=== PATIENT | female | born 1980 | race Caucasian/White ===

== ENCOUNTER → 2018-02-15 | Outpatient (CLI) | payer OTHER | LOC: CIMAGING 07:08 | PROVIDERS: ATTEND Physician Assistant | DX: K83.9 Disease of biliary tract, unspecified (principal); Z3A.00 Weeks of gestation of pregnancy not specified | CPT/HCPCS: 76705-PO ==

== ENCOUNTER → 2018-03-27 | Outpatient (CLI) | payer OTHER | LOC: FIMAGING 08:39 | PROVIDERS: ATTEND Advanced Practice Midwife | DX: O99.281 Endocrine, nutritional and metabolic diseases complicating pregnancy, first trimester (principal); O99.111 Other diseases of the blood and blood-forming organs and certain disorders involving the immune mechanism complicating pregnancy, first trimester; O26.01 Excessive weight gain in pregnancy, first trimester; O34.219 Maternal care for unspecified type scar from previous cesarean delivery; O09.521 Supervision of elderly multigravida, first trimester; E03.9 Hypothyroidism, unspecified; E72.12 Methylenetetrahydrofolate reductase deficiency; Z79.82 Long term (current) use of aspirin; Z87.59 Personal history of other complications of pregnancy, childbirth and the puerperium; Z3A.12 12 weeks gestation of pregnancy ==

== ENCOUNTER → 2018-05-30 | Outpatient (CLI) | payer OTHER | LOC: FIMAGING 07:41 | PROVIDERS: ATTEND Advanced Practice Midwife | DX: O09.522 Supervision of elderly multigravida, second trimester (principal); O99.282 Endocrine, nutritional and metabolic diseases complicating pregnancy, second trimester; E03.9 Hypothyroidism, unspecified; O09.292 Supervision of pregnancy with other poor reproductive or obstetric history, second trimester; O36.62X0 Maternal care for excessive fetal growth, second trimester, not applicable or unspecified; O26.02 Excessive weight gain in pregnancy, second trimester; O34.219 Maternal care for unspecified type scar from previous cesarean delivery; Z3A.21 21 weeks gestation of pregnancy; Z79.890 Hormone replacement therapy ==

== ENCOUNTER → 2018-06-29 | Outpatient (CLI) | payer OTHER | LOC: FIMAGING 13:13 | PROVIDERS: ATTEND Advanced Practice Midwife | DX: O09.522 Supervision of elderly multigravida, second trimester (principal); O34.212 Maternal care for vertical scar from previous cesarean delivery; Z3A.25 25 weeks gestation of pregnancy ==

== ENCOUNTER 2018-08-26 10:41 | Emergency (ER) | payer OTHER ==
--- NOTE | 2018-08-26 10:57 | EDPHY ---
HPI/HX/ROS/PE/MDM Narrative: CHIEF COMPLAINT: Cough, sore throat, cramping - 34 weeks HISTORY OF PRESENT ILLNESS: The patient is a 38 y/o woman, , 34 week complaining of a cough, sore throat, and cramping. 5 days ago, she developed a sore throat, followed by a cough the next day she developed a cough. Minimal upper respiratory infection symptoms. She reports shortness of breath with her coughing episodes. She denies tightness in her chest. She has also had some uterine cramping for the past few days. She reports the quality of the cramping is more similar to period cramps than it is to [place] contractions. She denies bleeding or spotting. She reports she can feel the baby moving normally. She works at [employer] and a student there was diagnosed with Pertussis about a month ago. She received an updated DTAP vaccine 2 weeks ago. She denies history of clotting. She denies smoking or being around smoker. Her son was sick with a similar cold. No fever, chills, chest pain, palpitations, vomiting, diarrhea, urinary complaints, headache, lightheadedness. REVIEW OF SYSTEMS: A comprehensive 10 system review of systems is otherwise negative aside from elements mentioned in the history of present illness and medical decision making. 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 Afebrile, heart rate 116, O2 sat 96% GENERAL: Well-developed, well-nourished, looks well, with a very harsh, violent , wheezy cough. HEENT: Atraumatic. Eyes: No icterus, no injection. Mouth: moist mucous membranes. No erythema or lesions. Neck: supple with no adenopathy. LUNGS: Breath sounds diminished bilaterally. Wheezy cough. No rhonchi or rales. CARDIAC: Tachycardic, regular rhythm, no rubs, murmurs or gallops. ABDOMEN: Soft, nontender, nondistended, bowel sounds normal. Gravid uterus is nontender. BACK: No CVA tenderness. EXTREMITIES: No trauma. No edema. Range of motion is normal throughout. NEURO: Alert and oriented, grossly nonfocal. SKIN: Warm and dry, no rash. PSYCHIATRIC: Normal mentation, no agitation. ED Course: The patient is 34 weeks and presents with a cough, shortness of breath , and lower abdominal cramping. She reports that she may have been exposed to pertussis recently. Her cramping feels different than [place] but the baby is still moving normally. She denies bleeding or spotting, fever, or other associated symptoms. heart tones are 136. Plan for CBC, basic metabolic panel, liver function, urinalysis, respiratory pathogen, 1 L NS fluids, and albuterol nebulizer. Patient will require monitoring Labor and delivery to ensure the no distress secondary to her intermittent cramping. Here in the emergency department she continues to feel good movement. Patient received a L of normal saline. White count and chemistries are largely unremarkable. Respiratory pathogen panel pending at this time. 12:20 PM - I reassessed this patient after her nebulizer and found her condition only slightly improved. Plan for additional nebulizer and reevaluation. I feel she will benefit from oral antibiotics over the next few days. Given her history of exposure to pertussis, Azithromycin, category B in , was prescribed. Following a 2nd neb, the patient is cough has improved but she still has coarse wheezes occasionally. She and I discussed x-ray to evaluate further. 1:15 PM - X-ray on my interpretation demonstrates mild increase in interstitial markings. Patient was discharged from the emergency department with a prescription for azithromycin, a meter dose inhaler, an additional 3 days of prednisone. I do not believe that she needs further evaluation for pulmonary embolism. Her symptoms developed in the setting of a sore throat and initial mild upper respiratory infection. Her son has been ill with similar findings. She has a coarse wheezing and diminished breath sounds throughout. I believe that a respiratory process is a much more likely diagnosis than pulmonary embolism There is no focality to her wheezing. She has no unilateral leg swelling. Patient proceeded to Labor and delivery for further evaluation of the fetus. Of note, she is tachycardic to 120 he is when leaving the emergency department, most likely the result of nebs. She had received a L of normal saline and had no ketones in her urine. MDM: Differential diagnosis for the patient's cough was considered including but not limited to viral versus bacterial bronchitis, asthma, pulmonary emboli, upper respiratory infection, lower respiratory infection, and bronchospasm. - Data Points Imaging Results: CXR: Impression: Normal. No pneumonia. Dictated By: Edward You MD Imaging: I viewed and interpreted images myself Laboratory Results: Laboratory Results 08/26/18 11:34 08/26/18 11:34 Medications Given: Discontinued Medications Albuterol (Proventil Neb) 3 ml IH EDNOW ONE Stop: 08/26/18 11:27 Last Admin: 08/26/18 11:40 Dose: 3 ml Albuterol (Proventil Neb) 3 ml IH EDNOW ONE Stop: 08/26/18 12:25 Last Admin: 08/26/18 12:25 Dose: 3 ml Azithromycin (Zithromax) 500 mg PO EDNOW ONE PRN Reason: Protocol Stop: 08/26/18 13:18 Last Admin: 08/26/18 13:31 Dose: Not Given Sodium Chloride (Ns) 1,000 mls @ 0 mls/hr IV ONCE ONE; Wide Open PRN Reason: Protocol Stop: 08/26/18 11:27 Last Admin: 08/26/18 11:38 Dose: 1,000 mls Prednisone (Prednisone) 40 mg PO EDNOW ONE Stop: 08/26/18 11:28 Last Admin: 08/26/18 11:39 Dose: 40 mg Microbiology Results: MICROBIOLOGY 08/26/18 14:12 Nasal, Sinus - Swab Respiratory Panel (PCR) - Final Parainfluenza Virus Type 3 General Time Seen by Provider: 08/26/18 10:54 Initial Vital Signs: Initial Vital Signs Temperature (C) 36.3 C 08/26/18 10:44 Heart Rate 116 H 08/26/18 10:44 Respiratory Rate 18 08/26/18 10:44 Blood Pressure 118/89 H 08/26/18 10:44 O2 Sat (%) 96 08/26/18 10:44 O2 Delivery Mode Room Air Allergies/Adverse Reactions: No Known Allergies Allergy (Unverified 08/08/16 15:29) Home Medications: Medication Instructions Recorded Vit27&Calcium/Iron/FA 1 each PO DAILY 08/08/16 [] Herbals/Supplements -Info Only 1 tab PO DAILY 09/02/16 VITAMIN D 1 cap PO DAILY 09/02/16 Ibuprofen [Motrin (*)] 600 mg PO Q6HRS PRN #0 tab 09/06/16 Iron Polysacch/Iron Heme Polyp 28 mg PO DAILY #0 tab 09/06/16 [Bifera] Levothyroxine [Synthroid 25 mcg 25 mcg PO DAILY #0 tab 09/06/16 (*)] Albuterol [Proventil Inhaler HFA 1 - 2 puffs IH Q4H #1 mdi 08/26/18 (*)] Azithromycin [Zithromax] 250 mg PO DAILY #4 tab 08/26/18 predniSONE [prednisone 10mg (RX)] 20 mg PO DAILY 3 Days tab 08/26/18 Departure - Departure Disposition: Home, Routine, Self-Care Clinical Impression: Cough, 34 weeks gestation of , Abdominal cramping, Bronchitis Condition: Good Instructions: (ED), Cold Symptoms (ED), Acute Cough (ED), Wheezing ( ED) Additional Instructions: 1. Take azithromycin as directed. Take your albuterol inhaler as directed for symptoms. Albuterol 2-4 puffs every 4-6 hours as needed for cough and shortness of breath 2. Please take the prednisone as directed. Prednisone 20 mg daily for the next 3 days. 3. Please get plenty of rest and drink plenty of fluids. 4. You may use Tylenol if needed for any fevers. Please discuss the use of Mucinex with your OBGYN. Please discuss the use of other [id number] cold and cough medications with your OBGYN. Referrals: NONE *PRIMARY CARE P,. [Primary Care Provider] - As per Instructions Prescriptions: Albuterol [Proventil Inhaler HFA (*)] 1 - 2 puffs IH Q4H #1 mdi Azithromycin [Zithromax] 250 mg PO DAILY #4 tab predniSONE [prednisone 10mg (RX)] 20 mg PO DAILY 3 Days tab Report Scribed for: Kathe Coles Report Scribed by: Marie Montaño Date of Report: 08/26/18 Time of Report: 12:38 Physician Review and Approval Statement: Portions of this note were transcribed by a medical laboratory technical officer. I personally performed a history, physical exam, medical decision making, and confirmed accuracy of information the transcribed note.
[2018-08-26] MEDS ORDERED: ALBUTEROL 3 ML DEYVIAL IH ONE ×2 (11:26→12:24)
[2018-08-26] MEDS ORDERED: NS 1,000 ML IV ONE (11:26)
[2018-08-26] MEDS ORDERED: predniSONE 20 MG TAB PO ONE (11:27)
[2018-08-26 11:50] LABS: PLATELET COUNT 177 10^3/uL (150-400)
[2018-08-26] MEDS ORDERED: ALBUTEROL 3 ML DEYVIAL ONE (12:23)
[2018-08-26 12:44] VITALS: BP 127/81
[2018-08-26] MEDS ORDERED: AZITHROMYCIN 250 MG TAB PO ONE (13:17)
== END 2018-08-26 13:40 | disposition home or self-care (01) ==
DX: O99.89 Other specified diseases and conditions complicating pregnancy, childbirth and the puerperium (principal); J40 Bronchitis, not specified as acute or chronic; R10.84 Generalized abdominal pain; Z3A.34 34 weeks gestation of pregnancy
CPT/HCPCS: J7512; J7613

== ENCOUNTER 2018-08-26 13:43 | Observation (INO) | payer OTHER ==
--- NOTE | 2018-08-26 15:40 | OBGCSDC ---
General Delivery Information - General Info : 2 Para: 1 Abortions: 0 Admission Date: 08/26/18 - Hospital Course Antepartum: 08/26/18 16:05 Evaluation for cramping [place] Data ESTRADA: 10/09/18 Gestational Age: 33 week(s) and 5 day(s) Discharge Information - Discharge Information Condition: Good Instruction/Follow Up: See Instruction Sheet (follow up with regular visit)
--- NOTE | 2018-08-26 15:40 | PDGENHP ---
History and Physical History and Physical: Pt is a 38 yo 2 34 weeks gestation, sent up to L & D from the ED after being evaluated for a respiratory infection and reporting uterine cramping. See ER report from today regarding diagnosis of bronchitis. Cody states she has had cramping on and off for the last week, mostly at night. Denies uc's. Baby has been moving well. Did receive 2 doses of prednisone in the ED. O) Afebrile. Maternal pulse 130 then decreased to 100. FHT baseline 150; mod judah; + accels; no decels. No uterine activity noted. A) 38 you @ 34 weeks, bronchitis. Reactive NST. P) Discharged home. Advised to take prescription medication as prescribed from ED and discussed importance of hydration. Also advised other comfort measures including using a humidifier, sleeping in elevated position. Will follow up for regular care in the office.
== END 2018-08-26 16:00 | disposition home or self-care (01) ==
LOC: FLD 13:43
PROVIDERS: ADMIT Advanced Practice Midwife; ATTEND Advanced Practice Midwife
DX: O99.513 Diseases of the respiratory system complicating pregnancy, third trimester (principal); J40 Bronchitis, not specified as acute or chronic; Z3A.34 34 weeks gestation of pregnancy
CPT/HCPCS: G0378 ×2

== ENCOUNTER → 2018-09-19 | Outpatient (CLI) | payer OTHER | LOC: FIMAGING 09:19 | PROVIDERS: ATTEND Advanced Practice Midwife | DX: O09.523 Supervision of elderly multigravida, third trimester (principal); Z36.88 Encounter for antenatal screening for fetal macrosomia; O34.219 Maternal care for unspecified type scar from previous cesarean delivery; O36.63X0 Maternal care for excessive fetal growth, third trimester, not applicable or unspecified; Z3A.37 37 weeks gestation of pregnancy ==

== ENCOUNTER 2018-10-06 01:59 | Inpatient (IN) | payer OTHER ==
--- NOTE | 2018-09-21 17:46 | GHP ---
PLANNED PROCEDURE: Repeat low transverse section. INDICATION: The patient is a 38-year-old 2, para 1-0-0-1 who will be at 39 plus weeks' gesta tion. She has a history of a previous low transverse section for arrest of dilation and non reassuring status. Patient's estimated date of confinement is 10/09/2018 dated by last menstru al period, consistent with a 7-week ultrasound. She has been receiving care with [facility] since the first trimester. Patient presented for a consent visit on 09/21/2018. Nolvia alfonso discussed the risks of vaginal after section as well as the algorithm predicted succ ess rate of 46%. The patient is hoping to have a vaginal after section if she proceed s into labor spontaneously prior to 40 weeks' gestation. If she does not proceed in labor prior to t hat, she will undergo a repeat low transverse section. Patient's family status is likely co mplete; however, she would not like to have a tubal ligation as her partner will have a vasectomy whe n the time comes. The patient has been properly consented. REVIEW OF SYSTEMS: 10-point review of systems is negative. Positive movement. No loss of flu id. No vaginal bleeding. She denies any headache or changes in vision. PAST MEDICAL HISTORY: History of anxiety largely surrounded by childbirth, MTHFR, history of migrain es, history of depression, hypothyroidism. MEDICATIONS: Levothyroxine 100 mcg, vitamins. Patient is also taking methylfolate and a ba by aspirin. PAST SURGICAL HISTORY: Oral surgery and section. ALLERGIES: No known drug allergies. SOCIAL HISTORY: Patient is . She lives with her and her child. She denies any tobac co, alcohol, or drug use. FAMILY MEDICAL HISTORY: Noncontributory. SPIN TABLE OPERATOR HISTORY: Menarche at age 13. Periods every 28 days lasting 4 to 5 days. She is a 2, para 1-0-0-1. In 08/2016, she had a primary low transverse section for arrest of dilation and intolerance of labor of a 7-pound 10-ounce male infant. That was at 41 weeks gestation. C urrent has been uncomplicated. She has had serial growth ultrasounds for size greater than dates. Repeat growth ultrasounds showed the baby in the 95th percentile. Patient denies any histor y of any abnormal Pap smears or sexually transmitted diseases. PHYSICAL EXAMINATION: VITAL SIGNS: Stable. GENERAL APPEARANCE: Alert and oriented x3. PSYCH: Ap propriate affect. MUSCULOSKELETAL: Grossly intact. NEURO: Grossly intact. HEART: Rate is regula r. LUNGS: Clear to auscultation bilaterally. ABDOMEN: Gravid, nondistended, nontender. No organo megaly is noted. EXTREMITIES: No calf tenderness or edema. PELVIC EXAM: Deferred. heart to julieta have positive accelerations. LABS: Blood type B positive, antibody screen negative. Rubella immune. GBS negative. HBs Ag negative. HIV negative. Her 50 g glucose was 117. She had negative Verifi and a negative alpha fetoprotein. ASSESSMENT AND PLAN: 38-year-old 2, para 1-0-0-1 who will be 39 0plus weeks' gestation with a history of a previous low transverse section. She has been properly consented on vaginal after section versus repeat section. If she does not progress into labor spo ntaneously by 40 weeks' gestation or if she decides to decline trial of labor, she will undergo a rep eat low transverse section. Risks and benefits have been properly reviewed with the patient . Patient has been properly consented. /[id number]/MODL
[2018-10-06] MEDS ORDERED: MISOPROSTOL 200 MCG TAB PO PRN (03:03)
[2018-10-06] MEDS ORDERED: LIDOCAINE 1% 300 MG/30 ML SDV SC PRN (03:03)
[2018-10-06] MEDS ORDERED: IBUPROFEN 600 MG TAB PO PRN (03:03)
[2018-10-06] MEDS ORDERED: AMMONIA AROMATIC 1 EACH AMP IH PRN (03:03)
[2018-10-06] MEDS ORDERED: OLIVE OIL 118 ML BTL MISC PRN (03:03)
[2018-10-06] MEDS ORDERED: OXYTOCIN/RINGERS LACTATE 1,000 ML IV PRN (03:03)
[2018-10-06] MEDS ORDERED: TERBUTALINE SULFATE 1 MG/ML VIAL IV PRN (03:03)
[2018-10-06] MEDS ORDERED: EPSOM SALT 454 GM TP PRN (03:03)
[2018-10-06] MEDS ORDERED: LR 1,000 ML IV PRN (03:03)
--- NOTE | 2018-10-06 03:03 | PDGENHP ---
History and Physical History and Physical: CARE: [facility] HPI: Patient is a 38 yo G 2 P 1 @ 39.4 weeks that presents to L&D with complaints of SROM at approximately midnight. She reports some mild cramping but denies regular painful ctx at this time. EDC: 10/09/18 which is based on LMP: 01/02/18 which is known and consistent with Ultrasound at 7 weeks. Her is complicated by: AMA over 35 yo, depression/anxiety started zoloft at 24 weeks, BMI>30, prior c/s, MTHFR taking methylfolate and baby ASA, hypothyroid, lipidemia. Review of Systems: Constitutional: Denies any fever, chills, or fatigue HEENT: denies any visual changes, difficulty swallowing, hearing loss Cardiovascular: Denies any chest pain, palpitations, leg swelling Respiratory: denies any cough, wheezing, or shortness of breathe GI: Denies any nausea, vomiting, diarrhea, constipation : denies any dysuria, urgency, frequency, vaginal bleeding Musculoskeletal: denies any muscle or bone pain Skin: denies any rashes Neuro: denies any headache, seizures, lightheadedness, dizziness, or loss of consciousness Psychiatric: denies any depression, anxiety, or SI/HI thoughts HISTORY: Previous OB history: primary c/s in 2016 d/t arrest of dilation, baby boy 7#10 oz. Social history: , counselor at [employer] Family history: no relavant family history reported Past medical history: MTHFR, thyroiditis, migraines, depression/anxiety Past surgical history: prior c/s Medications: PNV, baby ASA, synthroid 100 mcg, and zoloft 50 mg Allergies (list reaction): NKDA LABS: Rh: B+ ABS: Neg Rubella: Immune HbsAg: NR HIV: NR VDRL: NR 1hr: 60 first trimester, 117 at 28 weeks GC: Neg Chlamydia: Neg Pap: Normal 2017 GBS: neg BMI: (prepreg) 30.5 PHYSICAL EXAM: Constitutional: WN, A&Ox3 HEENT: normocephalic atraumatic, supple Heart: RRR, no murmur Chest: CTA-B Skin: warm, dry, intact Abdomen: Soft, nontender, gravid SVE: not performed d/t PROM Extremities: mild edema, negative homans sign Neuro: grossly normal Psych: normal affect assessment: FHT baseline 140, +accels, no decels, moderate variability Contractions: toco q irregular Assessment: 1) 38 yo G 2 P 1 with IUP@ 39.4 weeks 2) PROM, early labor 3) GBS neg 4) Cat 1 FHR tracing Plan: 1) Admit to L&D 2) Pt desires TOLAC 3) Consider pitocin augmentation if pt does not labor spontaneously after ROM
[2018-10-06] MEDS: diphenhydrAMINE 25 MG CAP PO PRN ×2 (03:21→22:49)
[2018-10-06 06:35] LABS: PLATELET COUNT 208 10^3/uL (150-400)
[2018-10-06] MEDS: ONDANSETRON 4 MG/2 ML VIAL IVP PRN (06:36)
--- NOTE | 2018-10-06 06:53 | OBPROG ---
Labor Progress Note Assessment/Plan: Assessment: spontaneous onset of labor Plan: TOLAC 10/06/18 06:50 Subjective/Intrapartum Course: 10/06/18 06:52 Pt feeling more uncomfortable. Nauseated, contractions are stronger. Objective: 10/06/18 06:25 VSS - Contraction Pattern Assessment Current Contraction Pattern: Regular - FHR Assessment Martins FHR (bpm): 135 (no accels) FHR Pattern Variability: Moderate (occasional minimal) FHR Category: 2 Oxytocin Orders Assessment - Pre-Induction/Augmentation Assessment Gestational Age: 39 week(s) and 4 day(s) ICD10 Worksheet Patient Problems: Problems Problem Status Onset Encounter for trial of labor Acute History of delivery, currently Acute Premature rupture of membranes Acute Term Acute
[2018-10-06] MEDS ORDERED: OLIVE OIL 118 ML BTL ONE (07:06)
[2018-10-06] MEDS ORDERED: TERBUTALINE SULFATE 1 MG/ML VIAL ONE (07:06)
[2018-10-06] MEDS ORDERED: LIDOCAINE 1% 300 MG/30 ML SDV ONE (07:06)
[2018-10-06] MEDS ORDERED: AMMONIA AROMATIC 1 EACH AMP IH ONE (07:06)
[2018-10-06] MEDS ORDERED: MISOPROSTOL 200 MCG TAB ONE (07:07)
[2018-10-06] MEDS ORDERED: OXYTOCIN 10 UNIT/ML VIAL ONE (07:07)
--- NOTE | 2018-10-06 07:53 | OBPROG ---
Labor Progress Note Assessment/Plan: Assessment: 38yo with IUP@ 39-4 weeks early/active labor TOLAC GBS Neg cat 1 FHR Plan: pain management PRN Dr Lea aware of pt status cont position changes PRN Reassess 2hr/PRN Subjective/Intrapartum Course: 10/06/18 06:52 Pt feeling more uncomfortable. Nauseated, contractions are stronger. 10/06/18 07:55 Pt breathing and working hard through each contraction. She used hydrotherapy but desires to get out of the tub at this time. She is considering pain management. FOB and Water Vessel Captain are supportive and at BS. Objective: 10/06/18 06:25 Patient ABO/Rh B POSITIVE 10/06/18 06:25 - SVE Dilation (cm): 1 Effacement (%): 50 Station: -3 Membranes: SROM Amniotic Fluid Color: Clear - Contraction Pattern Assessment Current Contraction Pattern: Regular - FHR Assessment Martins FHR (bpm): 135 FHR Pattern Variability: Minimal, Moderate Oxytocin Orders Assessment - Pre-Induction/Augmentation Assessment Gestational Age: 39 week(s) and 4 day(s) ICD10 Worksheet Patient Problems: Problems Problem Status Onset Encounter for trial of labor Acute History of delivery, currently Acute Premature rupture of membranes Acute Term Acute
[2018-10-06] MEDS ORDERED: fentaNYL 200 MCG, BUPIVACAINE 0.5% 20 ML in NS 100 ML EP SCH (08:30)
[2018-10-06] MEDS ORDERED: fentaNYL 100 MCG/2 ML INJ ONE (08:37)
[2018-10-06] MEDS ORDERED: PHENYLEPHRINE HCL 100 MCG/ML SYR ONE (08:38)
[2018-10-06] MEDS ORDERED: BUPIVACAINE 0.25% 30 ML SDV ONE (08:38)
--- NOTE | 2018-10-06 09:35 | OBPROG ---
Labor Progress Note Assessment/Plan: Assessment: 38yo with IUP@ 39-4 weeks early/active labor TOLAC GBS Neg cat 2 FHR /prolong decel CORBY in place IUPC/FSE placed Plan: cont position changes PRN Reassess 2hr/PRN Dr Lea aware of pt status 10/06/18 09:32 Subjective/Intrapartum Course: 10/06/18 06:52 Pt feeling more uncomfortable. Nauseated, contractions are stronger. 10/06/18 07:55 Pt breathing and working hard through each contraction. She used hydrotherapy but desires to get out of the tub at this time. She is considering pain management. FOB and Multifocal Lens Inspector are supportive and at BS. 10/06/18 09:33 Pt requested CORBY- which is now in place. Pt reports improvement in pain. Pt desires to rest. Aware of FHR decel and recommendation of internal monitoring x2 , pt agrees. Objective: 10/06/18 06:25 Patient ABO/Rh B POSITIVE 10/06/18 06:25 - SVE Dilation (cm): 2 Effacement (%): 80 Station: -3 Membranes: SROM Amniotic Fluid Color: Clear - Contraction Pattern Assessment Current Contraction Pattern: Regular - FHR Assessment Matrins FHR (bpm): 140 FHR Pattern Variability: Moderate FHR Category: 1 - Procedures Non-surgical Procedures: FSE, IUPC Oxytocin Orders Assessment - Pre-Induction/Augmentation Assessment Gestational Age: 39 week(s) and 4 day(s) ICD10 Worksheet Patient Problems: Problems Problem Status Onset Encounter for trial of labor Acute History of delivery, currently Acute Premature rupture of membranes Acute Term Acute
--- NOTE | 2018-10-06 09:37 | PDANEPAE ---
ANE History of Present Illness TOLAC requesting epidural ANE Past Medical History - Pulmonary History Hx Oxygen in Use at Home: No Hx Sleep Apnea: No - Endocrine History Hx Diabetes: No - Chronic Pain History Chronic Pain: No ANE Review of Systems Review of Systems: ANE Patient History - Allergies Allergies/Adverse Reactions: No Known Allergies Allergy (Unverified 08/08/16 15:29) - Home Medications Home medications: home medication list seen and reviewed Home Medications: Vit27&Calcium/Iron/FA [] 1 each PO DAILY 08/08/16 [Last Taken Unknown] Herbals/Supplements -Info Only 1 tab PO DAILY 09/02/16 [Last Taken Unknown] VITAMIN D 1 cap PO DAILY 09/02/16 [Last Taken Unknown] - Anes Hx Anes Hx: no prior problems (Epidural without diff) - Smoking Hx Smoking Status: Never smoked ANE Labs/Vital Signs - Labs Result Diagrams: 10/06/18 06:25 - Vital Signs Height: 165.1 cm Weight: 103.873 kg ANE Physical Exam - Airway Neck exam: FROM Mallampati Score: Class 2 Mouth exam: normal dental/mouth exam - Pulmonary Pulmonary: no respiratory distress - Cardiovascular Cardiovascular: regular rate and rhythym - ASA Status ASA Status: II ANE Anesthesia Plan Anesthesia Plan: epidural
--- NOTE | 2018-10-06 09:49 | OBPROG ---
Labor Progress Note Assessment/Plan: Assessment: Plan: Subjective/Intrapartum Course: 10/06/18 06:52 Pt feeling more uncomfortable. Nauseated, contractions are stronger. 10/06/18 07:55 Pt breathing and working hard through each contraction. She used hydrotherapy but desires to get out of the tub at this time. She is considering pain management. FOB and Nuclear Weapons Specialist are supportive and at BS. 10/06/18 09:33 Pt requested CORBY- which is now in place. Pt reports improvement in pain. Pt desires to rest. Aware of FHR decel and recommendation of internal monitoring x2 , pt agrees. 10/06/18 09:46 patient comfortable with epidural. had decel following epidural. internal placed by CNM. I met with the patient in the office two weeks ago for consent. discussed changes of success again today and answered questions. discussed indications for c section. overall status is reassuring now. will continue to follow closely. anesthesia aware and in house. Objective: 10/06/18 06:25 Patient ABO/Rh B POSITIVE 10/06/18 06:25 - SVE Dilation (cm): 2 Membranes: SROM Amniotic Fluid Color: Clear - Contraction Pattern Assessment Current Contraction Pattern: Regular - FHR Assessment Martins FHR Pattern Variability: Moderate FHR Category: 2 - Procedures Non-surgical Procedures: FSE, IUPC Oxytocin Orders Assessment - Pre-Induction/Augmentation Assessment Gestational Age: 39 week(s) and 4 day(s) ICD10 Worksheet Patient Problems: Problems Problem Status Onset Encounter for trial of labor Acute History of delivery, currently Acute Premature rupture of membranes Acute Term Acute
[2018-10-06] MEDS ORDERED: LR 500 ML IV SCH (10:00)
[2018-10-06] MEDS ORDERED: fentaNYL 2MCG/ML/BUP 0.1% RTU 100 ML EP SCH (10:00)
--- NOTE | 2018-10-06 11:59 | SOAPPROG ---
SOAP Progress Note Assessment/Plan: Assessment: Patient had severe nausea. Called in to perform acupuncture to help encourage contractions and reduce nausea. [place] Acupuncture (BFA): Cingular Gyrate, [place], [place], [place] 2, [place]aballo Men DU 20 Relax the anus and cervix. Yin [place] Calm the caraballo. DU 26 Relax the sacrum, open the cervix. Left Side: ST 36 Increase qi and blood (improve energy). Reduce nausea. GB 34 Empirical point to relax the tendons. Dilate the cervix. GB 40 Relax the waist. GB 41 Master of the Johana Melissa/Belt [place]. Relax the waist. Descent the baby. BL 65 Naina point for the BL. Reduce pain in the back and relax the paraspinals so the baby can descent. LR 3 Move the blood. LR 5 x 3 Estephania Image of the shoulder. Relax the neck and shoulder. BL 57 Support the anus. Reduce hemorrhoids. SP 4 Master of the Landa Melissa. Support the uterus. ST [address] the [address]. Reduce nausea. SP 10 Break blood stagnation. Move the blood. SP 9 Drain the damp. Electric stimulation: L LI 4 - R SP [address] 36 - L GB 41 L GB 34 - L GB 41 BL 23-32, bilateral Plan: 10/06/18 11:48 10/06/18 13:23 Objective: Laboratory Results 10/06/18 06:25 ICD10 Worksheet Patient Problems: Problems Problem Status Onset Encounter for trial of labor Acute History of delivery, currently Acute Premature rupture of membranes Acute Term Acute
--- NOTE | 2018-10-06 14:06 | OBPROG ---
Labor Progress Note Assessment/Plan: Assessment: 38yo with IUP@ 39-4 weeks early/active labor TOLAC GBS Neg cat [address] IUPC/FSE placed Plan: cont position changes PRN Reassess 2hr/PRN will start pitocin in approx 1 hour Subjective/Intrapartum Course: 10/06/18 06:52 Pt feeling more uncomfortable. Nauseated, contractions are stronger. 10/06/18 07:55 Pt breathing and working hard through each contraction. She used hydrotherapy but desires to get out of the tub at this time. She is considering pain management. FOB and Hat Cutter are supportive and at BS. 10/06/18 09:33 Pt requested CORBY- which is now in place. Pt reports improvement in pain. Pt desires to rest. Aware of FHR decel and recommendation of internal monitoring x2 , pt agrees. 10/06/18 09:46 patient comfortable with epidural. had decel following epidural. internal placed by CNM. I met with the patient in the office two weeks ago for consent. discussed changes of success again today and answered questions. discussed indications for c section. overall status is reassuring now. will continue to follow closely. anesthesia aware and in house. 10/06/18 12:00 Pt doing well, comfortable with CORBY. Acupuncture present at BS. discussed likely need for pitocin, but will use cautiously. Pt agrees with plan for pitocin. Objective: 10/06/18 06:25 Patient ABO/Rh B POSITIVE 10/06/18 06:25 - SVE Dilation (cm): 3 Effacement (%): 80 Station: -2 Membranes: SROM Amniotic Fluid Color: Clear - Contraction Pattern Assessment Current Contraction Pattern: Regular - Procedures Non-surgical Procedures: FSE, IUPC Oxytocin Orders Assessment - Pre-Induction/Augmentation Assessment Gestational Age: 39 week(s) and 4 day(s) ICD10 Worksheet Patient Problems: Problems Problem Status Onset Encounter for trial of labor Acute History of delivery, currently Acute Premature rupture of membranes Acute Term Acute
--- NOTE | 2018-10-06 14:08 | OBPROG ---
Labor Progress Note Assessment/Plan: Assessment: 38yo with IUP@ 39-4 weeks early/active labor TOLAC GBS Neg cat 1 FHR Plan: cont position changes PRN Reassess 2hr/PRN start pitocin at this time Dr Lea agrees with plan of care Subjective/Intrapartum Course: 10/06/18 06:52 Pt feeling more uncomfortable. Nauseated, contractions are stronger. 10/06/18 07:55 Pt breathing and working hard through each contraction. She used hydrotherapy but desires to get out of the tub at this time. She is considering pain management. FOB and Baseball Inspector are supportive and at BS. 10/06/18 09:33 Pt requested CORBY- which is now in place. Pt reports improvement in pain. Pt desires to rest. Aware of FHR decel and recommendation of internal monitoring x2 , pt agrees. 10/06/18 09:46 patient comfortable with epidural. had decel following epidural. internal placed by CNM. I met with the patient in the office two weeks ago for consent. discussed changes of success again today and answered questions. discussed indications for c section. overall status is reassuring now. will continue to follow closely. anesthesia aware and in house. 10/06/18 12:00 Pt doing well, comfortable with CORBY. Acupuncture present at BS. discussed likely need for pitocin, but will use cautiously. Pt agrees with plan for pitocin. 10/06/18 14:07 pt comfortable. she is well supported with doulas and FOB. Currently working on position changes to promote optimal position. Denies any pain. Objective: 10/06/18 06:25 Patient ABO/Rh B POSITIVE 10/06/18 06:25 - SVE Membranes: SROM Amniotic Fluid Color: Clear - Contraction Pattern Assessment Current Contraction Pattern: Regular - FHR Assessment Martins FHR (bpm): 145 FHR Pattern Variability: Moderate FHR Category: 1 - Procedures Non-surgical Procedures: FSE, IUPC Oxytocin Orders Assessment - Pre-Induction/Augmentation Assessment Gestational Age: 39 week(s) and 4 day(s) ICD10 Worksheet Patient Problems: Problems Problem Status Onset Encounter for trial of labor Acute History of delivery, currently Acute Premature rupture of membranes Acute Term Acute
[2018-10-06] MEDS ORDERED: LR 500 ML IV PRN (14:15)
[2018-10-06] MEDS ORDERED: OXYTOCIN/RINGERS LACTATE 500 ML IV SCH (14:30)
--- NOTE | 2018-10-06 15:43 | OBPROG ---
Labor Progress Note Assessment/Plan: Assessment: 38yo with IUP@ 39-4 weeks early/active labor TOLAC GBS Neg cat 2 FHR MVUs <50 Plan: cont position changes PRN Reassess 2hr/PRN cont to increase pitocin Dr Lea aware and agrees. will cont pitocin only to 10mU Subjective/Intrapartum Course: 10/06/18 06:52 Pt feeling more uncomfortable. Nauseated, contractions are stronger. 10/06/18 07:55 Pt breathing and working hard through each contraction. She used hydrotherapy but desires to get out of the tub at this time. She is considering pain management. FOB and Linen Controller are supportive and at BS. 10/06/18 09:33 Pt requested CORBY- which is now in place. Pt reports improvement in pain. Pt desires to rest. Aware of FHR decel and recommendation of internal monitoring x2 , pt agrees. 10/06/18 09:46 patient comfortable with epidural. had decel following epidural. internal placed by CNM. I met with the patient in the office two weeks ago for consent. discussed changes of success again today and answered questions. discussed indications for c section. overall status is reassuring now. will continue to follow closely. anesthesia aware and in house. 10/06/18 12:00 Pt doing well, comfortable with CORBY. Acupuncture present at BS. discussed likely need for pitocin, but will use cautiously. Pt agrees with plan for pitocin. 10/06/18 14:07 pt comfortable. she is well supported with doulas and FOB. Currently working on position changes to promote optimal position. Denies any pain. 10/06/18 15:41 Pt doing well, reports having some occasional vaginal pressure. She is resting when able. She is continuing to do position changes. She is aware will only increase pitocin to 10mU. Objective: 10/06/18 06:25 Patient ABO/Rh B POSITIVE 10/06/18 06:25 - SVE Dilation (cm): 3 Effacement (%): 90 Station: -2 Membranes: SROM Amniotic Fluid Color: Clear - Contraction Pattern Assessment Current Contraction Pattern: Regular - FHR Assessment Martins FHR (bpm): 145 FHR Pattern Variability: Moderate FHR Category: 1 - Procedures Non-surgical Procedures: FSE, IUPC Oxytocin Orders Assessment - Pre-Induction/Augmentation Assessment Gestational Age: 39 week(s) and 4 day(s) ICD10 Worksheet Patient Problems: Problems Problem Status Onset Encounter for trial of labor Acute History of delivery, currently Acute Premature rupture of membranes Acute Term Acute
[2018-10-06] MEDS ORDERED: CEFAZOLIN 2 GM/DEXTROSE/100 ML BAG IV ONE (16:47)
--- NOTE | 2018-10-06 17:02 | OBPROG ---
Labor Progress Note Assessment/Plan: Assessment: Plan: Subjective/Intrapartum Course: 10/06/18 06:52 Pt feeling more uncomfortable. Nauseated, contractions are stronger. 10/06/18 07:55 Pt breathing and working hard through each contraction. She used hydrotherapy but desires to get out of the tub at this time. She is considering pain management. FOB and Sewer Pipe Sorter are supportive and at BS. 10/06/18 09:33 Pt requested CORBY- which is now in place. Pt reports improvement in pain. Pt desires to rest. Aware of FHR decel and recommendation of internal monitoring x2 , pt agrees. 10/06/18 09:46 patient comfortable with epidural. had decel following epidural. internal placed by NATI. I met with the patient in the office two weeks ago for consent. discussed changes of success again today and answered questions. discussed indications for c section. overall status is reassuring now. will continue to follow closely. anesthesia aware and in house. 10/06/18 12:00 Pt doing well, comfortable with CORBY. Acupuncture present at BS. discussed likely need for pitocin, but will use cautiously. Pt agrees with plan for pitocin. 10/06/18 14:07 pt comfortable. she is well supported with doulas and FOB. Currently working on position changes to promote optimal position. Denies any pain. 10/06/18 15:41 Pt doing well, reports having some occasional vaginal pressure. She is resting when able. She is continuing to do position changes. She is aware will only increase pitocin to 10mU. 10/06/18 17:00 fhts had decel to the 90's and return to baseline after 9 minutes. no further change in cervix. status reassuring following decel. discussion about continued close observation vs proceeding with repeat c section. patient and agreeable to proceeding with repeat c section. consent signed. anesthesia bolusing epidural. patient transported to or Objective: 10/06/18 06:25 Patient ABO/Rh B POSITIVE 10/06/18 06:25 - SVE Dilation (cm): 3 Effacement (%): 90 Station: -2 Membranes: SROM Amniotic Fluid Color: Clear - Contraction Pattern Assessment Current Contraction Pattern: Regular - FHR Assessment Martins FHR Category: 3 - Procedures Non-surgical Procedures: FSE, IUPC Oxytocin Orders Assessment - Pre-Induction/Augmentation Assessment Gestational Age: 39 week(s) and 4 day(s) ICD10 Worksheet Patient Problems: Problems Problem Status Onset Encounter for trial of labor Acute History of delivery, currently Acute Premature rupture of membranes Acute Term Acute
[2018-10-06] MEDS ORDERED: morphINE PF 5 MG/10 ML INJ ONE (17:21)
[2018-10-06] MEDS ORDERED: OXYTOCIN 100 UNITS/10 ML VIAL ONE (17:25)
[2018-10-06] MEDS ORDERED: DEXAMETHASONE 4 MG/ML VIAL ONE (17:27)
[2018-10-06] MEDS ORDERED: ONDANSETRON 4 MG/2 ML VIAL ONE ×2 (17:27)
[2018-10-06] MEDS ORDERED: METOCLOPRAMIDE 10 MG/2 ML VIAL ONE (17:27)
[2018-10-06] MEDS ORDERED: ALBUTEROL 3 ML DEYVIAL IH PRN (17:37)
[2018-10-06] MEDS ORDERED: NALOXONE HCL 0.4 MG/ML INJ IVP PRN ×2 (17:37)
[2018-10-06] MEDS ORDERED: HYDROmorphONE/DILAUDID 2 MG/ML INJ IVP PRN (17:37)
[2018-10-06] MEDS ORDERED: oxyCODONE IR 5 MG TAB PO PRN (17:37)
[2018-10-06] MEDS ORDERED: fentaNYL 100 MCG/2 ML INJ IVP PRN (17:37)
[2018-10-06] MEDS ORDERED: DEXAMETHASONE 4 MG/ML VIAL IVP PRN (17:37)
[2018-10-06] MEDS ORDERED: ONDANSETRON 4 MG/2 ML VIAL IVP PRN ×2 (17:37)
--- NOTE | 2018-10-06 18:10 | OBDEL ---
Info Type: Repeat Presentation at Delivery: Vertex L&D Analgesia/Anesthesia Type: Epidural GBS+: No Intrapartum Medications: Generic Name Dose Route Start Last Admin Trade Name Erwinq PRN Reason Stop Dose Admin Diphenhydramine HCl 25 mg 10/06/18 03:05 10/06/18 03:21 Benadryl PO 04/04/19 03:04 25 mg HS PRN Administration Sleep/Insomnia Lactated Ringer's 1,000 mls @ 0 mls/hr 10/06/18 03:03 10/06/18 14:42 Lr IV 10/07/18 03:02 1,000 mls PRN PRN Administration SEE PROTOCOL CONDITIONS Protocol Per Protocol Oxytocin/Lactated Ringer's 500 mls @ 0 mls/hr 10/06/18 14:30 10/06/18 14:42 Pitocin 30 Units/Lr (Premix) IV 04/04/19 14:29 500 mls CONT AYDEN Administration Protocol Per Protocol Ondansetron HCl 4 mg 10/06/18 06:22 10/06/18 06:36 Zofran IVP 04/04/19 06:21 4 mg Q4HRS PRN Administration Nausea/Vomiting, Can't Take PO - Hospital Course Intrapartum: 10/06/18 06:52 Pt feeling more uncomfortable. Nauseated, contractions are stronger. 10/06/18 07:55 Pt breathing and working hard through each contraction. She used hydrotherapy but desires to get out of the tub at this time. She is considering pain management. FOB and Organ Pipe Maker Metal are supportive and at BS. 10/06/18 09:33 Pt requested CORBY- which is now in place. Pt reports improvement in pain. Pt desires to rest. Aware of FHR decel and recommendation of internal monitoring x2 , pt agrees. 10/06/18 09:46 patient comfortable with epidural. had decel following epidural. internal placed by CNM. I met with the patient in the office two weeks ago for consent. discussed changes of success again today and answered questions. discussed indications for c section. overall status is reassuring now. will continue to follow closely. anesthesia aware and in house. 10/06/18 12:00 Pt doing well, comfortable with CORBY. Acupuncture present at BS. discussed likely need for pitocin, but will use cautiously. Pt agrees with plan for pitocin. 10/06/18 14:07 pt comfortable. she is well supported with doulas and FOB. Currently working on position changes to promote optimal position. Denies any pain. 10/06/18 15:41 Pt doing well, reports having some occasional vaginal pressure. She is resting when able. She is continuing to do position changes. She is aware will only increase pitocin to 10mU. 10/06/18 17:00 fhts had decel to the 90's and return to baseline after 9 minutes. no further change in cervix. status reassuring following decel. discussion about continued close observation vs proceeding with repeat c section. patient and agreeable to proceeding with repeat c section. consent signed. anesthesia bolusing epidural. patient transported to or Indications for Delivery: Spontaneous Labor Vaginal Delivery - Labor and Delivery Amniotic Fluid Color: Clear Non-surgical Procedures: FSE, IUPC Cord Gases: Cord Gases Cord Blood PCO2 87.7 mmHg (37-60) H 10/06/18 17:27 Cord Base Excess -11.9 mEq/L (-13.6--3.2) 10/06/18 17:27 Cord ABG pH 7.06 (7.10-7.37) L 10/06/18 17:27 Cord VBG pH 7.07 (7.20-7.42) L 10/06/18 17:27 Operative Report - Delivery Pre-op Diagnoses: IUP 39 4/7 weeks, prom, history prior section, intolerance of labor, arrest of dilation, failed attempted vaginal after section Post-op Diagnoses: same as pre op diagnosis plus marginal cord insertion History of Prior Section: Yes Number of Prior Sections: 1 Nulliparous Prior to Delivery: No Indications for Prior Section: Arrest of Dilation Indications for Current Section: Arrest of Dilation, Non-reas. Status Procedure: Unscheduled, Low Transverse Surgeon: Kimber Lea Shipmaster: Mily Bull Anesthesiologist: Don Galicia Complications: None EBL: 700 Cord Gases: Cord Gases Cord Blood PCO2 87.7 mmHg (37-60) H 10/06/18 17:27 Cord Base Excess -11.9 mEq/L (-13.6--3.2) 10/06/18 17:27 Cord ABG pH 7.06 (7.10-7.37) L 10/06/18 17:27 Cord VBG pH 7.07 (7.20-7.42) L 10/06/18 17:27 [place] Data ESTRADA: 10/09/18 Gestational Age: 39 week(s) and 4 day(s) Martins Delivery Date: 10/06/18 Delivery Time: 17:24 Sex of Infant: Female Score (1 Min): 2 Score (5 Min): 6 Score (10 Min): 8 ICD10 Worksheet Patient Problems: Problems Problem Status Onset Encounter for trial of labor Acute History of delivery, currently Acute Premature rupture of membranes Acute Term Acute
[2018-10-06] MEDS ORDERED: BISACODYL 10 MG SUPP PR PRN (18:17)
[2018-10-06] MEDS ORDERED: MAGNESIUM HYDROXIDE 30 ML UDCUP PO PRN (18:17)
[2018-10-06] MEDS ORDERED: LACTULOSE 20 GM/30 ML UDCUP PO PRN (18:17)
[2018-10-06] MEDS ORDERED: PROMETHAZINE HCL 25 MG/ML INJ IVP PRN (18:17)
[2018-10-06] MEDS ORDERED: DOCUSATE SODIUM 100 MG CAP PO PRN (18:17)
[2018-10-06] MEDS ORDERED: SIMETHICONE 80 MG TAB CHEW PO PRN (18:17)
[2018-10-06] MEDS ORDERED: POLYETHYLENE GLYCOL 3350 17 GM PKT PO PRN (18:17)
--- NOTE | 2018-10-06 18:18 | OBPROG ---
Labor Progress Note Assessment/Plan: Assessment: 38yo with IUP@ 39-4 weeks early/active labor TOLAC GBS Neg MVUs <50 intolerance to labor Plan: Dr Lea called to BS proceed with c/s at this time Subjective/Intrapartum Course: 10/06/18 06:52 Pt feeling more uncomfortable. Nauseated, contractions are stronger. 10/06/18 07:55 Pt breathing and working hard through each contraction. She used hydrotherapy but desires to get out of the tub at this time. She is considering pain management. FOB and Liquid Center Assembler are supportive and at BS. 10/06/18 09:33 Pt requested CORBY- which is now in place. Pt reports improvement in pain. Pt desires to rest. Aware of FHR decel and recommendation of internal monitoring x2 , pt agrees. 10/06/18 09:46 patient comfortable with epidural. had decel following epidural. internal placed by NATI. I met with the patient in the office two weeks ago for consent. discussed changes of success again today and answered questions. discussed indications for c section. overall status is reassuring now. will continue to follow closely. anesthesia aware and in house. 10/06/18 12:00 Pt doing well, comfortable with CORBY. Acupuncture present at BS. discussed likely need for pitocin, but will use cautiously. Pt agrees with plan for pitocin. 10/06/18 14:07 pt comfortable. she is well supported with doulas and FOB. Currently working on position changes to promote optimal position. Denies any pain. 10/06/18 15:41 Pt doing well, reports having some occasional vaginal pressure. She is resting when able. She is continuing to do position changes. She is aware will only increase pitocin to 10mU. 10/06/18 16:50 Pt doing ok- aware of decels and need for repeat c/s at this time. consents obtained 10/06/18 17:00 fhts had decel to the 90's and return to baseline after 9 minutes. no further change in cervix. status reassuring following decel. discussion about continued close observation vs proceeding with repeat c section. patient and agreeable to proceeding with repeat c section. consent signed. anesthesia bolusing epidural. patient transported to or 10/06/18 18:17 Objective: 10/06/18 06:25 Patient ABO/Rh B POSITIVE 10/06/18 06:25 - SVE Dilation (cm): 3 Effacement (%): 90 Station: -2 Membranes: SROM Amniotic Fluid Color: Clear - Contraction Pattern Assessment Current Contraction Pattern: Regular - Procedures Non-surgical Procedures: FSE, IUPC Oxytocin Orders Assessment - Pre-Induction/Augmentation Assessment Gestational Age: 39 week(s) and 4 day(s) ICD10 Worksheet Patient Problems: Problems Problem Status Onset Encounter for trial of labor Acute History of delivery, currently Acute Premature rupture of membranes Acute Term Acute
--- NOTE | 2018-10-06 18:33 | POSTANESTH ---
Post Anesthetic Evaluation Cardiovascular Status: Tx Hyper/Hypo-tension Respiratory Status: Normal, Stable Level of Consciousness/Mental Status: Can Participate in Eval, Alert and Oriented Pain Control: Adequate, Prn Tx Ordered Nausea/Vomiting Control: Adequate, Prn Tx Ordered Complications Possibly Related to Anesthesia: None Noted
[2018-10-06] MEDS ORDERED: KETOROLAC 30 MG/1 ML SDV ONE (19:54)
[2018-10-06] MEDS: KETOROLAC 30 MG/1 ML SDV IVP SCH (19:56)
[2018-10-06] MEDS: SENNOSIDES/DOCUSATE SODIUM TAB PO SCH (23:07)
[2018-10-07] MEDS: ACETAMINOPHEN 325 MG TAB PO SCH ×5 (00:30→20:10)
[2018-10-07] MEDS: ONDANSETRON 4 MG/2 ML VIAL IVP PRN (02:03)
[2018-10-07] MEDS: KETOROLAC 30 MG/1 ML SDV IVP SCH ×3 (02:10→13:50)
[2018-10-07] MEDS: LEVOTHYROXINE 100 MCG TAB PO SCH (05:12)
--- NOTE | 2018-10-07 07:37 | GOP ---
DATE OF OPERATION: 10/06/2018 SURGEON: Kimber Lea DO TRESTLE MAINTERNANCE LABORER: Mily Bull ANESTHESIA: Epidural. ANESTHESIOLOGIST: Don Galicia PREOPERATIVE DIAGNOSIS: Intrauterine at 39- 4/7 weeks' gestation, spontaneous rupture of m embranes, arrest of dilation, intolerance of labor, history of previous section. POSTOPERATIVE DIAGNOSIS: Intrauterine at 39- 4/7 weeks' gestation, spontaneous rupture of membranes, arrest of dilation, intolerance of labor, history of previous section, plus marginal cord insertion. PROCEDURE PERFORMED: FINDINGS: 1. Viable 8-pound 4-ounce female in the cephalic presentation, delivered at 1724. Apgars were 2, 6, and 8. 2. Intact placenta with marginal cord insertion with 3-vessel cord. Normal ovaries, uterus, and tub es. ESTIMATED BLOOD LOSS: 700 cc. INDICATIONS: The patient is a 38-year-old 2, para 1-0-0-1, who has a history of previous low transverse section for arrest of dilation and descent patient had ful ly counseled on that. Patient had spontaneous rupture of membranes in the routeman of 8. She came in for observation and was obviously in labor. She progressed into early labor. She al so received acupuncture, and overall status was reassuring, with the exception of a couple dece lerations. Pitocin was ultimately started, and internal monitors had been in place. She did decel d own to the 90s for 9 minutes and returned to baseline after that. Decision was made to proceed with a repeat low transverse section, as the cervix had not dilated past 3 cm. Risks and benefit s were then reviewed with the patient, and patient was properly consented. DESCRIPTION OF PROCEDURE: Patient was taken to the operating room with intravenous fluids in place. She was then placed on the operating room table in the dorsal supine position, and her epidural had been rebolused. A Tolbert catheter was already in place. Venodynes were placed on her lower extremiti es. She was then prepped and draped in a normal sterile fashion. Anesthesia was assessed and found to be adequate. A Pfannenstiel skin incision was then made 2 fingerbreadths above the pubic symphysi s. The incision was then carried through to the underlying layer of fascia with the Bovie. The fasc ia was then nicked in midline, and the fascial incision was extended laterally. The superior aspect of the fascial incision was then grasped with a Regan, was tented up, and the underlying rectus musc le dissected off bluntly with the Bovie. Attention was then turned to the inferior aspect of the fas cial incision which, in a similar fashion, was grasped with Kochers, tented up, and the underlying re ctus muscle dissected off bluntly with the Bovie. The rectus muscle was then in the midlin e. The peritoneum was then identified, tented up, and entered sharply with the Metzenbaum scissors. The incision was extended superiorly and inferiorly with excellent visualization of the bladder. Th e bladder blade was then inserted. The vesicouterine peritoneum was identified, tented up, and enter ed sharply with the Metzenbaum scissors. The incision was extended laterally, and the bladder flap w as created digitally. The bladder blade was then reinserted. The uterus was then incised in low tra nsverse fashion with a scalpel. The uterine incision was extended laterally. The infant's head was then delivered through the incision, and the remainder of the was delivered without difficulty . Delayed cord clamping was done, and then the cord was clamped because the baby was not crying. Th e cord was then clamped x2 and cut, and the infant was handed off to awaiting nurse practiti kami. Intact placenta with 3-vessel cord delivered without difficulty. We attempted to exteriorize the patient's uterus; however, she was having significant nausea and vomiting, and exteriorization of the uterus would additionally increase her nausea and vomiting, so we decided to leave it in situ. The bladder blade was then reinserted and 0 Vicryl stitch was used to close the uterus with a running locked fashion. Hemostasis was assured. The uterus was then rotated and the ovaries and tubes were visualized bilaterally. Hysterotomy remained hemostatic. Peritoneum was reapproximated with 3-0 Vi cryl in a running fashion. Rectus muscle was reapproximated with 2-0 Vicryl in a running fashion. F ascia was closed with 0 Vicryl in a running fashion. Shadi fascia was reapproximated with 2-0 Vicry l in a running fashion. Subcuticular tissue was reapproximated with 3-0 Vicryl in a running fashion. The skin was then closed with anthony. Sponge, lap, and needle counts were correct x2. Patient wa s transported to recovery room in stable condition. /[id number]/MODL
[2018-10-07] MEDS: SERTRALINE HCL 50 MG TAB PO SCH (08:18)
[2018-10-07] MEDS: SENNOSIDES/DOCUSATE SODIUM TAB PO SCH ×2 (08:18→20:10)
--- NOTE | 2018-10-07 09:40 | OBPP ---
Progress Note Assessment/Plan: Assessment: 38 yo POD#1 s/p failed , R-C/S, doing well postoperatively. Good urine output. Mild anemia. Plan: DC urinary catheter GENARO and encourage ambulation. May remove dressing later today. Continue routine cares per CNM. Linnea Hernandez MD, [facility] 10/07/18 09:40 Subjective/ Course: Pt doing well. Dangled at side of bed. Mild dizziness with that. Rylee reg diet. No flatus yet. Pain well controlled. Some anxiety when learning that she has anthony in place. 10/07/18 11:41 Objective: 10/07/18 05:20 Patient ABO/Rh B POSITIVE 10/06/18 06:25 Temp Pulse Resp BP Pulse Ox 35.9 C L 70 16 89/57 L 94 10/07/18 08:21 10/07/18 08:21 10/06/18 23:45 10/07/18 08:21 10/07/18 08:21 gen - pleasant, NAD CV - RRR chest - CTAB abd - soft, fundus firm at u-1, + BS, inc - C/D/I ext - 2+ edema with SCDs in place, neg Iman's BLE Uterine Position/Fundal Height: Umbilicus -2 Uterine Tone: Firm
--- NOTE | 2018-10-07 11:36 | OBPP ---
Progress Note Assessment/Plan: Assessment: 38yo s/p repeat c/s for intolerance POD#1 Plan: routine post op care d/c noe this afternoon ambulate support PRN plan d/c home in 48hrs Subjective/ Course: 10/07/18 11:31 Pt doing well, slept a couple hours. She denies any pain or heavy bleeding. Dressing C/D/I. She is without difficulty. She is eating and drinking. She will ambulate today. Objective: 10/07/18 05:20 Patient ABO/Rh B POSITIVE 10/06/18 06:25 Temp Pulse Resp BP Pulse Ox 35.9 C L 70 16 89/57 L 94 10/07/18 08:21 10/07/18 08:21 10/06/18 23:45 10/07/18 08:21 10/07/18 08:21 Uterine Position/Fundal Height: At Umbilicus, Midline Uterine Tone: Firm Physical Exam - Physical Exam General Appearance: WD/WN, alert, no apparent distress Neck: supple Abdomen: non-tender, soft, dressing (C/D/I) Extremities: pedal edema Skin: normal color, warm/dry Neuro/Psych: alert, normal mood/affect, oriented x 3
--- NOTE | 2018-10-07 15:14 | SOAPPROG ---
SOAP Progress Note Assessment/Plan: Assessment: POD #1 s/p repeat C/S performed under lumbar epidural. Pt. doing very well. Plan: Continue current medical mgmt. 10/07/18 15:11 Subjective: Pt. denies N/V, pruritus, motor/sensory deficits. Pain controlled well. Objective: Vital Signs Temp Pulse Resp BP Pulse Ox 35.9 C L 70 16 89/57 L 94 10/07/18 08:21 10/07/18 08:21 10/06/18 23:45 10/07/18 08:21 10/07/18 08:21 Laboratory Results 10/07/18 05:20 10/06/18 10/07/18 10/08/18 05:59 05:59 05:59 Intake Total 650 1200 Output Total 2100 500 Balance -1450 700 - Pending Discharge Pending Discharge Within 24 Hours: No Physical Exam - Physical Exam General Appearance: WD/WN, alert, no apparent distress Extremities: normal range of motion Neuro/Psych: no motor/sensory deficits ICD10 Worksheet Patient Problems: Problems Problem Status Onset Encounter for trial of labor Acute History of delivery, currently Acute Premature rupture of membranes Acute Term Acute
[2018-10-07] MEDS: diphenhydrAMINE 25 MG CAP PO PRN (18:19)
[2018-10-07] MEDS: IBUPROFEN 600 MG TAB PO SCH (20:09)
[2018-10-07] MEDS ORDERED: SENNOSIDES/DOCUSATE SODIUM TAB PO SCH (21:00)
[2018-10-07] MEDS: oxyCODONE IR 5 MG TAB PO PRN ×2 (21:31→23:13)
[2018-10-08] MEDS: ACETAMINOPHEN 325 MG TAB PO SCH ×4 (02:23→21:01)
[2018-10-08] MEDS: IBUPROFEN 600 MG TAB PO SCH ×4 (02:23→21:01)
[2018-10-08] MEDS: oxyCODONE IR 5 MG TAB PO PRN ×4 (04:19→23:47)
[2018-10-08] MEDS: LEVOTHYROXINE 100 MCG TAB PO SCH (05:35)
[2018-10-08] MEDS: diphenhydrAMINE 25 MG CAP PO PRN (05:37)
[2018-10-08] MEDS: SERTRALINE HCL 50 MG TAB PO SCH (08:33)
[2018-10-08] MEDS: SENNOSIDES/DOCUSATE SODIUM TAB PO SCH ×2 (08:34→21:01)
--- NOTE | 2018-10-08 10:26 | OBPP ---
Progress Note Assessment/Plan: Assessment: Post - Op day 2 Plan: Normal PP care D/C home 2 days. 10/06/18 06:50 10/08/18 10:25 Subjective/ Course: Pt doing well. Dangled at side of bed. Mild dizziness with that. Rylee reg diet. No flatus yet. Pain well controlled. Some anxiety when learning that she has anthony in place. 10/07/18 11:41 10/08/18 10:24 Doing well. Ambulating in halls. Voiding, passing gas. Tolerating reg diet. Pain well controlled with PO meds. Breast feeding well. Objective: 10/07/18 05:20 Patient ABO/Rh B POSITIVE 10/06/18 06:25 Temp Pulse Resp BP Pulse Ox 37.3 C 72 16 99/72 L 95 10/08/18 08:41 10/08/18 08:41 10/08/18 08:41 10/08/18 08:41 10/08/18 08:41 VSS Uterine Position/Fundal Height: At Umbilicus Uterine Tone: Firm
[2018-10-09] MEDS: IBUPROFEN 600 MG TAB PO SCH ×2 (02:47→09:35)
[2018-10-09] MEDS: ACETAMINOPHEN 325 MG TAB PO SCH ×2 (02:47→09:34)
[2018-10-09] MEDS: LEVOTHYROXINE 100 MCG TAB PO SCH (06:45)
[2018-10-09] MEDS: oxyCODONE IR 5 MG TAB PO PRN ×3 (06:45→11:08)
[2018-10-09] MEDS: SENNOSIDES/DOCUSATE SODIUM TAB PO SCH (09:35)
[2018-10-09] MEDS: SERTRALINE HCL 50 MG TAB PO SCH (09:35)
--- NOTE | 2018-10-09 10:39 | OBPP ---
Progress Note Assessment/Plan: Assessment: PPD #3 Plan: 10/09/18 10:39 Remove anthony Discharge home today Follow up in clinic week 2 Subjective/ Course: Pt doing well. Dangled at side of bed. Mild dizziness with that. Rylee reg diet. No flatus yet. Pain well controlled. Some anxiety when learning that she has anthony in place. 10/07/18 11:41 10/08/18 10:24 Doing well. Ambulating in halls. Voiding, passing gas. Tolerating reg diet. Pain well controlled with PO meds. Breast feeding well. 10/09/18 10:37 Doing well. Has been ambulating with some discomfort but doing better. Voiding without difficulty. Bleeding minimal. Has had a bowel movement. Baby nursing well. Pain well controlled on ibuprofen and tyenol as well as the occasional oxycodone. Ready to discharge home today. Objective: 10/07/18 05:20 Patient ABO/Rh B POSITIVE 10/06/18 06:25 Temp Pulse Resp BP Pulse Ox 36.1 C 92 16 111/76 95 10/08/18 20:00 10/08/18 20:00 10/08/18 20:00 10/08/18 20:00 10/08/18 20:00 Breasts full, nipples intact bilaterally Neg eddy's sign Uterine Position/Fundal Height: Umbilicus -1 Uterine Tone: Firm
--- NOTE | 2018-10-09 10:40 | OBGCSDC ---
General Delivery Information - General Info : 2 Para: 2 Abortions: 0 Type: Repeat L&D Analgesia/Anesthesia Type: Epidural, Spinal Admission Date: 10/06/18 Labs: Patient ABO/Rh B POSITIVE 10/06/18 06:25 Hct 34.8 % (38.0-47.0) L 10/07/18 05:20 - Hospital Course Intrapartum: 10/06/18 06:52 Pt feeling more uncomfortable. Nauseated, contractions are stronger. 10/06/18 07:55 Pt breathing and working hard through each contraction. She used hydrotherapy but desires to get out of the tub at this time. She is considering pain management. FOB and [employer] are supportive and at BS. 10/06/18 09:33 Pt requested CORBY- which is now in place. Pt reports improvement in pain. Pt desires to rest. Aware of FHR decel and recommendation of internal monitoring x2 , pt agrees. 10/06/18 09:46 patient comfortable with epidural. had decel following epidural. internal placed by NATI. I met with the patient in the office two weeks ago for consent. discussed changes of success again today and answered questions. discussed indications for c section. overall status is reassuring now. will continue to follow closely. anesthesia aware and in house. 10/06/18 12:00 Pt doing well, comfortable with CORBY. Acupuncture present at BS. discussed likely need for pitocin, but will use cautiously. Pt agrees with plan for pitocin. 10/06/18 14:07 pt comfortable. she is well supported with doulas and FOB. Currently working on position changes to promote optimal position. Denies any pain. 10/06/18 15:41 Pt doing well, reports having some occasional vaginal pressure. She is resting when able. She is continuing to do position changes. She is aware will only increase pitocin to 10mU. 10/06/18 16:50 Pt doing ok- aware of decels and need for repeat c/s at this time. consents obtained 10/06/18 17:00 fhts had decel to the 90's and return to baseline after 9 minutes. no further change in cervix. status reassuring following decel. discussion about continued close observation vs proceeding with repeat c section. patient and agreeable to proceeding with repeat c section. consent signed. anesthesia bolusing epidural. patient transported to or 10/06/18 18:17 : Pt doing well. Dangled at side of bed. Mild dizziness with that. Rylee reg diet. No flatus yet. Pain well controlled. Some anxiety when learning that she has anthony in place. 10/07/18 11:41 10/08/18 10:24 Doing well. Ambulating in halls. Voiding, passing gas. Tolerating reg diet. Pain well controlled with PO meds. Breast feeding well. 10/09/18 10:37 Doing well. Has been ambulating with some discomfort but doing better. Voiding without difficulty. Bleeding minimal. Has had a bowel movement. Baby nursing well. Pain well controlled on ibuprofen and tyenol as well as the occasional oxycodone. Ready to discharge home today. Vaginal - Diagnosis Amniotic Fluid Color: Clear - Procedures Non-surgical Procedures: FSE, IUPC - Delivery Providers Surgeon: Kimber Lea Thread Winder: Mily Bull Anesthesiologist: Don Galicia - Delivery Indications for Current Section: Non-reas. Status Non-surgical Procedures: FSE, IUPC Surgical Procedures: Unscheduled, Low Transverse Intra-op Complications: None Data ESTRADA: 10/09/18 Gestational Age: 40 week(s) and 0 day(s) Martins Delivery Date: 10/06/18 Delivery Time: 17:24 Sex of : Female [place] Weight (gm): 3736 g Score (1 Min): 2 Score (5 Min): 6 Score (10 Min): 9 Discharge Information - Discharge Information Condition: Good Instruction/Follow Up: Two Weeks, Four Weeks, Six Weeks
[2018-10-09 11:04] VITALS: BP 107/77
== END 2018-10-09 15:04 | disposition home or self-care (01) | DRG 788 ==
LOC: FLD 01:59 → FOB 20:07
PROVIDERS: ADMIT Advanced Practice Midwife; ATTEND Obstetrics & Gynecology
PROC: 10D00Z1 Extraction of Products of Conception, Low, Open Approach (ICD-10-PCS; principal; 2018-10-06)
PROC: 10H073Z Insertion of Monitoring Electrode into Products of Conception, Via Natural or Artificial Opening (ICD-10-PCS; 2018-10-06)
PROC: 4A1H7CZ Monitoring of Products of Conception, Cardiac Rate, Via Natural or Artificial Opening (ICD-10-PCS; 2018-10-06)
PROC: 8E0H30Z Acupuncture (ICD-10-PCS; 2018-10-06)
DX: O62.0 Primary inadequate contractions (principal); O76 Abnormality in fetal heart rate and rhythm complicating labor and delivery; O69.89X0 Labor and delivery complicated by other cord complications, not applicable or unspecified; O34.211 Maternal care for low transverse scar from previous cesarean delivery; O99.344 Other mental disorders complicating childbirth; Z3A.39 39 weeks gestation of pregnancy; Z37.0 Single live birth; F41.8 Other specified anxiety disorders
CPT/HCPCS: J0690; J1100; J1885; J2274; J2370; J2405; J2590; J2765; J3010; J3105; J7613

== ENCOUNTER → 2019-01-23 | Outpatient (CLI) | payer BC | LOC: CIMAGING 07:08 | PROVIDERS: ATTEND Physician Assistant | DX: R14.0 Abdominal distension (gaseous) (principal) | CPT/HCPCS: 76700-PO ==